=== PATIENT | male | born 1955 | race Caucasian/White ===

== ENCOUNTER → 2017-01-25 | Outpatient (CLI) | payer OTHER ==
[~2017-01-25] MED LIST: GABAPENTIN800 MG PO; LISINOPRIL20 MG PO; NORCO 7.5-3251 EACH PO; PERCOCET 10-321 EACH PO; PERCOCET 5/325 T1 EA PO; PREVACID15 M1 PO; ULTRAM50 MG PO; XARELTO10 MG PO
[2017-01-25 09:19] LABS: HEMOGLOBIN 10.1 gm/dl (14.0-17.5); RED BLOOD COUNT 3.78 M/UL (4.20-5.50)
[2017-01-25 09:46] LABS: BUN/CREATININE RATIO 17 (0-10)
== END ==
LOC: OPSV2 08:44
PROVIDERS: Orthopaedic Surgery
DX: Z01.812 Encounter for preprocedural laboratory examination (principal); Z01.810 Encounter for preprocedural cardiovascular examination; M16.11 Unilateral primary osteoarthritis, right hip; Z88.8 Allergy status to other drugs, medicaments and biological substances; I10 Essential (primary) hypertension
CPT/HCPCS: 36415; 80048; 80051; 81001; 82565; 85027; 93005

== ENCOUNTER → 2017-02-02 | Outpatient (CLI) | payer OTHER | LOC: LAB 10:13 | DX: Z01.812 Encounter for preprocedural laboratory examination (principal) | CPT/HCPCS: 36415; 80051; 82565; 84520; 86850; 86900; 86901 ==

== ENCOUNTER 2017-02-03 06:11 | Inpatient (IN) | payer OTHER ==
[~2017-02-03] VITALS: Ht 175.3 cm; Wt 83.5 kg
[~2017-02-03 06:11] MED LIST changes: -PERCOCET 10-321 EACH PO
[2017-02-04 07:39] LABS: HEMOGLOBIN 9.1 gm/dl (14.0-17.5); RED BLOOD COUNT 3.4 M/UL (4.20-5.50)
[2017-02-04 07:55] LABS: BUN/CREATININE RATIO 12 (0-10)
[2017-02-05 06:41] LABS: HEMOGLOBIN 8.5 gm/dl (14.0-17.5); RED BLOOD COUNT 3.17 M/UL (4.20-5.50); WHITE BLOOD COUNT 13.2 K/UL (4.5-11.0)
[2017-02-05 06:54] LABS: BUN/CREATININE RATIO 18 (0-10)
[2017-02-05 14:08] LABS: HEMOGLOBIN 9.4 gm/dl (14.0-17.5); RED BLOOD COUNT 3.48 M/UL (4.20-5.50); WHITE BLOOD COUNT 13.1 K/UL (4.5-11.0)
[2017-02-06 06:02] LABS: HEMOGLOBIN 9.3 gm/dl (14.0-17.5); RED BLOOD COUNT 3.47 M/UL (4.20-5.50); WHITE BLOOD COUNT 11.7 K/UL (4.5-11.0)
[2017-02-06 06:19] LABS: BUN/CREATININE RATIO 21 (0-10)
[2017-02-06] MEDS ORDERED: XARELTO10 MG PO (11:39)
[2017-02-06] MEDS ORDERED: PERCOCET 10-321 EACH PO (11:40)
== END 2017-02-06 12:34 | disposition home health service (06) | DRG 470 ==
LOC: ZOBSOF 06:11 → M/S 16:55
PROVIDERS: Emergency Medicine; ADMIT Orthopaedic Surgery
PROC: 0SR904A Replacement of Right Hip Joint with Ceramic on Polyethylene Synthetic Substitute, Uncemented, Open Approach (ICD-10-PCS; principal; 2017-02-03 13:15)
DX: M16.11 Unilateral primary osteoarthritis, right hip (principal); D62 Acute posthemorrhagic anemia; K21.9 Gastro-esophageal reflux disease without esophagitis; Z96.642 Presence of left artificial hip joint; I10 Essential (primary) hypertension; Z88.8 Allergy status to other drugs, medicaments and biological substances; Z82.49 Family history of ischemic heart disease and other diseases of the circulatory system; Z79.891 Long term (current) use of opiate analgesic; Z79.899 Other long term (current) drug therapy
CPT/HCPCS: 36415; 72170; 80048; 82607; 82728; 82746; 83540; 83550; 83735; 84466; 85027; 86255; 97110; 97116; 97530; 97535; C1776; J0690; J1100; J2250; J2270; J2405; J2710; J3010; J3370; J7120